=== PATIENT | female | born 1950 | race Caucasian/White ===

== ENCOUNTER → 2019-08-30 | Outpatient (CLI) | payer OTHER ==
--- NOTE | 2019-08-30 14:05 | KCIC ---
CT HEAD WITHOUT CONTRAST 08/30/2019 12:00 PM Indication: Headache since head trauma approximately 2 months ago Comparison: CT head without contrast February 14, 2016 Procedure: Multidetector CT imaging of the head was performed without the administration of contrast. Findings: There is no evidence of acute intracranial hemorrhage. There is no evidence of acute territorial infarction. Please note that CT is limited for evaluation of acute ischemia. No mass effect or midline shift is identified . The ventricles and basilar cisterns have an appropriate appearance. No abnormal extra-axial fluid collections are seen. No acute osseous changes are identified. Impression: No evidence of acute intracranial abnormality CT DOSING PQRS STATEMENT: One or more of the following individualized dose reduction techniques were utilized for this examination: 1. Automated exposure control 2. Adjustment of the mA and/or kV according to patient size 3. Use of iterative reconstruction technique Electronically signed by: Danny Eugene MD (08/30/2019 2:02 PM) [id number]
== END | disposition home or self-care (01) ==
LOC: KCIC CT 11:44
PROVIDERS: ATTEND Psychiatry & Neurology Neurology with Special Qualifications in Child Neurology
DX: G43.009 Migraine without aura, not intractable, without status migrainosus (principal)
CPT/HCPCS: 70450

== ENCOUNTER 2020-10-22 15:40 | Emergency (ER) | payer MEDICARE, OTHER ==
[~2020-10-22] VITALS: Ht 165.1 cm; Wt 83.0 kg
[2020-10-22 17:21] VITALS: BP 142/81
--- NOTE | 2020-10-22 18:19 | PHYS DOC ---
Past Medical History Past Medical History: A-Fib, CHF, Migraines Past Surgical History: Pacemaker Smoking Status: Never Smoker Alcohol Use: None General Adult EDM: Chief Complaint: LOWER EXTREMITY SWELLING HPI: HPI: Patient is a 69 year old female with past medical history A. fib CHF presents with a chief complaint of bilateral lower extremity swelling and pain. Patient states swelling has been ongoing for several weeks. Patient has been prescribed Lasix but she states she randomly takes it. She did not take it on a regular basis due to urinary incontinence. Prior to arrival patient was evaluated at an urgent care and sent to the emergency department for an ultrasound to rule out bilateral lower extremity DVTs. Patient states she does have some shortness of breath occasionally with exertion which is close to her baseline. She denies any runny nose stuffy nose cough congestion fever or chills. Review of Systems: Review of Systems: Constitutional: Denies fever or chills. [] Eyes: Denies change in visual acuity. [] HENT: Denies nasal congestion or sore throat. [] Respiratory: Denies cough or shortness of breath. [] Cardiovascular: Denies chest pain or positive bilateral lower extremity edema. [] GI: Denies abdominal pain, nausea, vomiting, bloody stools or diarrhea. [] : Denies dysuria. [] Musculoskeletal: Denies back pain or joint pain. [] Integument: Denies rash. [] Neurologic: Denies headache, focal weakness or sensory changes. [] Endocrine: Denies polyuria or polydipsia. [] Lymphatic: Denies swollen glands. [] Psychiatric: Denies depression or anxiety. [] Heart Score: Risk Factors: Risk Factors: DM, Current or recent (<one month) smoker, HTN, HLP, family history of CAD, obesity. Risk Scores: Score 0 - 3: 2.5% MACE over next 6 weeks - Discharge Home Score 4 - 6: 20.3% MACE over next 6 weeks - Admit for Clinical Observation Score 7 - 10: 72.7% MACE over next 6 weeks - Early Invasive Strategies Physical Exam: PE: Constitutional: Well developed, well nourished, no acute distress, non-toxic appearance. [] HENT: Normocephalic, atraumatic, bilateral external ears normal, oropharynx moist, no oral exudates, nose normal. [] Eyes: PERRLA, EOMI, conjunctiva normal, no discharge. [] Neck: Normal range of motion, no tenderness, supple, no stridor. [] Cardiovascular:Heart rate regular rhythm, no murmur [] Lungs & Thorax: Bilateral breath sounds clear to auscultation [] Abdomen: Bowel sounds normal, soft, no tenderness, no masses, no pulsatile masses. [] Skin: Warm, dry, no erythema, no rash. [] Back: No tenderness, no CVA tenderness. [] Extremities: No tenderness, no cyanosis, no clubbing, ROM intact, no edema. [] Neurologic: Alert and oriented X 3, normal motor function, normal sensory function, no focal deficits noted. [] Psychologic: Affect normal, judgement normal, mood normal. [] Current Patient Data: Vital Signs: Vital Signs Date Time Temp Pulse Resp B/P (MAP) Pulse Ox O2 Delivery O2 Flow Rate FiO2 10/22/20 17:21 98.5 66 22 142/81 (101) 98 Room Air 98.5 EKG: EKG: [] Radiology/Procedures: Radiology/Procedures: [] Impression: Ultrasound negative for DVTs bilateral lower extremities Course & Med Decision Making: Course & Med Decision Making Pertinent Labs and Imaging studies reviewed. (See chart for details) [] Dragon Disclaimer: Dragon Disclaimer: This electronic medical record was generated, in whole or in part, using a voice recognition dictation system. Departure Departure Impression: Primary Impression: Bilateral lower extremity edema Disposition: 01 [place] [facility] SELF CARE/HOMELESS Condition: STABLE Referrals: ADONAY DÍAZ MD (PCP) Patient Instructions: Peripheral Edema Additional Instructions: No DVT. Bilateral lower extremity edema. Patient to continue taking her diuretic as prescribed by her primary care physician. Patient will need to follow-up with her primary care physician for further evaluation. Scripts Tramadol Hcl (ULTRAM) 50 Mg Tablet 1 TAB PO PRN Q6HRS PRN for pain MDD 4 Tablet(s) for 7 Days, #20 TAB 0 Refills Prov: REMEDIOS METZ DO 10/22/20 LASHAYREMEDIOS Charu DO Oct 22, 2020 18:19
[2020-10-22] MEDS ORDERED: TRAM-48 PO (19:51)
--- NOTE | 2020-10-22 19:53 | RAD ---
EXAM: Bilateral lower extremity venous Doppler. HISTORY: Bilateral lower extremity pain/swelling. COMPARISON: None. FINDINGS: Grayscale and Doppler analysis of the both lower extremity deep venous systems was performe d with graded compression and augmentation. The common femoral, greater saphenous, superficial femora l, popliteal and calf veins were assessed. There is no evidence of deep venous thrombosis. IMPRESSION: 1. No evidence of deep venous thrombosis. Electronically signed by: Pushpa Garcia MD (10/22/2020 7:51 PM) [facility]
== END 2020-10-22 20:06 | disposition home or self-care (01) ==
LOC: ER 15:40
DX: R60.0 Localized edema (principal); R32 Unspecified urinary incontinence; R06.02 Shortness of breath; I48.20 Chronic atrial fibrillation, unspecified; I50.9 Heart failure, unspecified; G43.909 Migraine, unspecified, not intractable, without status migrainosus; Z95.0 Presence of cardiac pacemaker
CPT/HCPCS: 93970; 99284